=== PATIENT | female | born 1980 | race Caucasian/White ===

== ENCOUNTER 2021-06-21 21:13 | Emergency (ER) | payer OTHER, SELFPAY ==
--- NOTE | ~2021-06-21 | XR_ITS ---
EXAMINATION: XR chest 2V DATE: 06/21/2021 21:44 INDICATION: Chest pain and tightness. TECHNIQUE: PA and lateral views of the chest were obtained. COMPARISON: None FINDINGS: The lungs are clear with no focal airspace opacities, pulmonary edema, pleural effusion or pneumothor ax. The cardiomediastinal silhouette is normal. Visualized bones and soft tissues are unremarkable. IMPRESSION: 1. No acute cardiopulmonary disease. Reviewed, dictated and finalized at location [facility]. [employer]
--- NOTE | 2021-06-21 21:15 | ECG_ITS ---
Measurements Intervals [place] Rate: 115 P: 78 ID: [id number] QRS: 74 QRSD: 91 T: -38 QT: 342 QTc: 474 Interpretive Statements SINUS TACHYCARDIA LEFT ATRIAL ENLARGEMENT BORDERLINE ST-T WAVE ABNORMALITY- ANTEROLAT/INF LEADS BASELINE ARTIFACT- II, III ABNORMAL ECG Electronically Signed On 06-22-2021 7:42:55 [place] by Josue Pittman D.O.
[2021-06-21 21:17] VITALS: BP 133/108; PULSE 97; RESP 18; TEMP 37.5; O2SAT 98
[2021-06-21 21:29] LABS: Basophils Absolute Auto 0.1 K/mm3 (0.0-0.1); Basophils Percent Auto 0.7 % (0.2-1.2); Eosinophils Absolute Auto 0.1 K/mm3 (0-0.3); Eosinophils Percent Auto 1.2 % (0-4.4); Hematocrit 40.4 % (37.0-47.0); Hemoglobin 14.1 g/dL (12.0-15.0); Immature Granulocyte Absolute 0.02 K/mm3 (0.00-0.031); Immature Granulocyte Percent A 0.2 % (0-0.5); Lymphocytes Absolute Auto 2.11 K/mm3 (0.9-3.2); Lymphocytes Percent Auto 23.3 % (18.3-44.2); Mean Corpuscular HGB Conc 34.9 g/dl (32-36); Mean Corpuscular Hemoglobin 36.2 pg (26-34); Mean Corpuscular Volume 103.6 fl (80-100); Mean Platelet Volume 10.3 fl (7.4-10.4); Monocytes Absolute Auto 0.5 K/mm3 (0.1-0.6); Neutrophils Absolute Auto 6.2 K/mm3 (1.3-6.7); Neutrophils Percent Auto 68.6 % (45.5-73.1); Platelet Count Result 140 k/mm3 (150-375); Red Cell Distribution Width 13.5 % (11.5-14.5)
[2021-06-21 21:39] LABS: Alanine Aminotransferase 63 U/L (4-35); Albumin Level 4.9 g/dL (3.5-5.1); Alkaline Phosphatase 171 U/L (38-126); Anion Gap 18 mmol/L (8-16); Aspartate Amino Transferase 314 U/L (14-36); Bilirubin,Total 1.7 mg/dL (0.2-1.3); Blood Urea Nitrogen 4 mg/dL (7-17); Calcium 9.4 mg/dL (8.4-10.2); Carbon Dioxide 22 mmol/L (22-30); Chloride 93 mmol/L (98-107); Estimated CRCL calculation 174 ml/min; Estimated Glomerular Filt Rate > 60; Glucose 128 mg/dL (65-110); Lipase 135 U/L (23-300); Sodium 133 mmol/L (137-145)
[2021-06-21 21:41] LABS: Prothrombin Time 12.7 Seconds (11.1-14.7)
[2021-06-21 21:42] LABS: Partial Thromboplastin Time 29.2 SECONDS (22.3-36.8)
[2021-06-21 21:51] LABS: Troponin I < 0.012 ng/mL (0.000-0.034)
== END 2021-06-21 23:05 | disposition left against medical advice (07) ==
LOC: ANHED 23:05
PROVIDERS: Emergency Medicine
DX: R07.89 Other chest pain (principal)
CPT/HCPCS: 36415; 71046; 80053; 83690; 84484; 85025; 85610; 85730; 93005; 99199